=== PATIENT | male | born 1980 | race African-American/Black ===

== ENCOUNTER 2020-05-26 01:23 | Observation (INO) ==
[2020-05-26] MEDS ORDERED: SODIUM CHLORIDE 0.9% 1,000 ML IV STA (02:10)
[2020-05-26] MEDS ORDERED: ONDANSETRON 4 MG/2 ML VIAL IV STA (02:10)
[2020-05-26 02:18] LABS: Basophils % 0.4 % (0.0-0.8); Hematocrit 43.6 VOL% (42.0-52.0); Hemoglobin 14.7 GM/DL (14.0-18.0); Immature Granulocytes % 0.5 %; Immature Granulocytes Absolute 0.04 #; Lymphocytes # 1.1 10*3/uL (1.4-4.0); Lymphocytes % 14.6 % (21.2-54.2); Mean Corpuscular HGB Conc 33.7 GM/DL (32-36); Mean Corpuscular Volume 77.4 FL (87-102); Mean Platelet Volume 11.8 FL (9.6-12.0); Monocytes # 0.7 10*3/uL (0.11-0.8); Monocytes % 8.4 % (1.7-12.7); Neutrophils % 76.1 % (38.7-73.9); Platelet Count 262 T/CUMM (130-400); Red Blood Count 5.63 MC/CUMM (3.8-5.5); Red Cell Distribution Width 13.8 % (9.3-17.3); White Blood Count 7.7 T/CUMM (4-12)
[2020-05-26 02:30] LABS: Alanine Aminotransferase 23 U/L (16-61); Albumin 3.4 G/DL (3.4-5.0); Alkaline Phosphatase 72 U/L (45-117); Amylase 94 U/L (25-115); Aspartate Amino Transferase 19 U/L (0-37); Bilirubin,Total < 0.39 MG/DL (0.2-1.0); Blood Urea Nitrogen 26 MG/DL (7-18); Calcium 9.2 MG/DL (8.5-10.1); Carbon Dioxide 22 MMOL/L (21-32); Chloride 107 MMOL/L (98-107); Estimated Glom Filtration Rate 127 ML/MIN; Ferritin 1876.7 ng/ml (26-388); Glucose 277 MG/DL (74-106); Osmolality,Calculated 293.4 MOS/KG (273-304); Potassium 4.4 MMOL/L (3.5-5.1); Sodium 140 MMOL/L (136-145); Total Protein 8.3 G/DL (6.4-8.3); Troponin I < 0.015 NG/ML (0.00-0.045)
[2020-05-26 03:03] LABS: Bilirubin,Urine Negative (Negative); Blood, Urine Negative (Negative); Glucose,Urine (UA) >=500 mg/dL (Negative); Granular Casts,Urine 4 /LPF (0-1); Hyaline Casts,Urine 7 /LPF (0-3); Ketones,Urine 80 mg/dL (Negative); Mucus,Urine Occasional /LPF (Occasional); Nitrite,Urine Negative (Negative); Protein,Urine Negative; RBC,Urine 1 /HPF (0-4); Squamous Epithelial Cell,Urine Occasional /HPF (0-10); Urine Appearance CLEAR (Clear); Urine Color Yellow (Yellow); Urine Specific Gravity 1.026 (1.001-1.035); Urine Urobilinogen < 2.0 EU/DL (0.2-1.0); WBC,Urine 1 /HPF (0-6)
[2020-05-26] MEDS ORDERED: GLUCAGON 1 MG VIAL IM PRN ×2 (04:03)
[2020-05-26] MEDS ORDERED: DEXTROSE 50% 25 GM/50 ML VIAL IV PRN (04:03)
[2020-05-26] MEDS ORDERED: DEXTROSE 50% 25 GM/50 ML SYRINGE IV PRN (04:03)
[2020-05-26] MEDS ORDERED: ACETAMINOPHEN 325 MG TABLET PO PRN (04:03)
[2020-05-26] MEDS ORDERED: ONDANSETRON 4 MG/2 ML VIAL IV PRN (04:03)
[2020-05-26] MEDS ORDERED: SODIUM CHLORIDE 0.9% 1,000 ML IV SCH (04:30)
[2020-05-26 05:04] LABS: Hypochromia 1+; Microcytosis 1+
[2020-05-26 05:05] LABS: Platelet Estimate Normal
[2020-05-26 05:42] LABS: ABG Base Excess -1.4 MMOL/L (-2.5-2.5); ABG HCO3 23.2 MMOL/L (20-26); ABG Oxygen Saturation 97.5 % (95-100); ABG PCO2 38.6 MM HG (35-48); ABG PH 7.388 (7.35-7.45); ABG PO2 90.6 MM HG (80-95); ABG TCO2 20.1 MMOL/L (23-27); Allen Test Positive; Pt O2 Delivery Device Room Air
[2020-05-26] MEDS: SODIUM CHLORIDE 0.9% 1,000 ML IV SCH ×2 (06:00→18:31)
[2020-05-26] MEDS: INSULIN REGULAR 100 UNIT/ML SUBCUT SCH ×4 (08:20→20:50)
[2020-05-26] MEDS ORDERED: PANTOPRAZOLE 40 MG TABLET PO SCH (09:00)
[2020-05-26] MEDS: CETIRIZINE 10 MG TABLET PO SCH (09:00)
[2020-05-26] MEDS: CHOLECALCIFEROL 1,000 UNIT TABLET PO SCH (09:00)
[2020-05-26] MEDS ORDERED: ZINC GLUCONATE 50 MG TABLET PO SCH (09:00)
[2020-05-26] MEDS: ASCORBIC ACID 500 MG TABLET PO SCH (09:00)
[2020-05-26] MEDS ORDERED: INSULIN GLARGINE 100 UNIT/ML SUBCUT SCH (09:00)
[2020-05-26] MEDS: FAMOTIDINE 20 MG TABLET PO SCH ×2 (09:00→20:50)
[2020-05-26 09:47] LABS: Basophils % 0.3 % (0.0-0.8); Hematocrit 42.3 VOL% (42.0-52.0); Hemoglobin 14.2 GM/DL (14.0-18.0); Immature Granulocytes % 0.3 %; Immature Granulocytes Absolute 0.03 #; Lymphocytes # 1.1 10*3/uL (1.4-4.0); Lymphocytes % 12.3 % (21.2-54.2); Mean Corpuscular HGB Conc 33.6 GM/DL (32-36); Mean Corpuscular Volume 77.6 FL (87-102); Mean Platelet Volume 10.6 FL (9.6-12.0); Monocytes # 0.5 10*3/uL (0.11-0.8); Monocytes % 5.8 % (1.7-12.7); Neutrophils % 81.3 % (38.7-73.9); Platelet Count 253 T/CUMM (130-400); Red Blood Count 5.45 MC/CUMM (3.8-5.5); Red Cell Distribution Width 14.2 % (9.3-17.3); White Blood Count 8.6 T/CUMM (4-12)
[2020-05-26] MEDS: INSULIN GLARGINE 100 UNIT/ML SUBCUT SCH ×2 (10:00→20:50)
[2020-05-26 10:10] LABS: Band Neutrophils 7 % (0-10); Hypochromia 1+; Lymphocytes 8 % (20-55); Microcytosis 1+; Platelet Estimate Adequate; Total Cells Counted 100
[2020-05-26 10:16] LABS: Albumin 3.2 G/DL (3.4-5.0); Bilirubin,Total 0.4 MG/DL (0.2-1.0); Calcium 8.8 MG/DL (8.5-10.1); Ferritin 1636.4 ng/ml (26-388); Osmolality,Calculated 288.7 MOS/KG (273-304); Potassium 4.6 MMOL/L (3.5-5.1); Total Protein 7.9 G/DL (6.4-8.3)
[2020-05-26] MEDS ORDERED: LACTATED RINGERS 1,000 ML IV ONE (14:32)
[2020-05-26] MEDS: SODIUM CHLOR 0.9% KCL 40 MEQ 40 MEQ/1,000 ML BAG IV SCH (16:00)
[2020-05-27] MEDS: SODIUM CHLOR 0.9% KCL 40 MEQ 40 MEQ/1,000 ML BAG IV SCH (04:40)
[2020-05-27 05:06] LABS: Basophils % 0.5 % (0.0-0.8); Hematocrit 39.1 VOL% (42.0-52.0); Immature Granulocytes % 0.5 %; Immature Granulocytes Absolute 0.03 #; Lymphocytes # 1.9 10*3/uL (1.4-4.0); Lymphocytes % 32.4 % (21.2-54.2); Mean Corpuscular HGB Conc 33.2 GM/DL (32-36); Mean Corpuscular Volume 78.7 FL (87-102); Mean Platelet Volume 11.4 FL (9.6-12.0); Monocytes # 0.4 10*3/uL (0.11-0.8); Monocytes % 7.2 % (1.7-12.7); Neutrophils % 59.4 % (38.7-73.9); Platelet Count 232 T/CUMM (130-400); Red Blood Count 4.97 MC/CUMM (3.8-5.5); Red Cell Distribution Width 14.1 % (9.3-17.3); White Blood Count 5.9 T/CUMM (4-12)
[2020-05-27 05:24] LABS: Calcium 8.6 MG/DL (8.5-10.1); Osmolality,Calculated 277.5 MOS/KG (273-304); Potassium 3.9 MMOL/L (3.5-5.1)
[2020-05-27] MEDS: CETIRIZINE 10 MG TABLET PO SCH (08:58)
[2020-05-27] MEDS: CHOLECALCIFEROL 1,000 UNIT TABLET PO SCH (08:58)
[2020-05-27] MEDS: FAMOTIDINE 20 MG TABLET PO SCH (08:58)
[2020-05-27] MEDS: ASCORBIC ACID 500 MG TABLET PO SCH (08:58)
[2020-05-27] MEDS: INSULIN GLARGINE 100 UNIT/ML SUBCUT SCH (08:59)
[2020-05-27] MEDS: INSULIN REGULAR 100 UNIT/ML SUBCUT SCH ×2 (08:59→12:57)
[2020-05-27] MEDS ORDERED: LISINOPRIL/HCTZ 10-12.5 MG TABLET PO SCH (09:00)
[2020-05-27 12:22] VITALS: BP 101/62
[2020-05-27] MEDS ORDERED: INSULIN NPH 100 UNIT/ML SUBCUT SCH (16:30)
[2020-05-27] MEDS ORDERED: glyBURIDE 5 MG TABLET PO SCH (17:00)
== END 2020-05-27 15:00 | disposition home or self-care (01) ==
LOC: N.EDINP 01:23 → N.ED 01:23 → N.2E 18:18
PROVIDERS: ADMIT Internal Medicine; ATTEND Internal Medicine